=== PATIENT | male | born 1955 | race Two or more races ===

== ENCOUNTER 2023-01-03 12:23 | Emergency (ER) | payer OTHER ==
[~2023-01-03] VITALS: Ht 182.9 cm; Wt 77.2 kg
[2023-01-03] MEDS ORDERED: HYDROcodone-ACET 5/325MG TAB PO ONE (14:00)
[2023-01-03 15:00] VITALS: BP 123/80; PULSE 83; RESP 17; TEMP 97.7; O2SAT 97
== END 2023-01-03 16:04 | disposition short-term general hospital (02) ==
LOC: ER 12:23
DX: S42.492A Other displaced fracture of lower end of left humerus, initial encounter for closed fracture (principal); E11.9 Type 2 diabetes mellitus without complications; W11.XXXA Fall on and from ladder, initial encounter; Y93.89 Activity, other specified; Y92.89 Other specified places as the place of occurrence of the external cause; Y99.8 Other external cause status
CPT/HCPCS: 29105; 73030; 73080